=== PATIENT | female | born 1935 | race Caucasian/White ===

== ENCOUNTER → 2018-07-26 | Outpatient (CLI) | payer MEDICARE, BC ==
--- NOTE | 2018-07-26 12:57 | ECHOF ---
Referral Reason:I48.91 A fib MEASUREMENTS -------- HEIGHT: 180.3 cm WEIGHT: 104.3 kg BP: RVIDd: 2.7 cm (< 3.3) IVSd: 1.4 cm (0.6 - 1.1) LVIDd: 5.0 cm (3.9 - 5.3) LVPWd: 1.2 cm (0.6 - 1.1) IVSs: 1.9 cm LVIDs: 3.3 cm LVPWs: 1.9 cm LAESV Index (A-L): 41.69 ml/m Ao Diam: 3.2 cm (2.0 - 3.7) AV Cusp: 1.6 cm (1.5 - 2.6) LA Diam: 4.2 cm (2.7 - 3.8) RAP: 15.00 mmHg RVSP: 43.93 mmHg FINDINGS -------- Atrial fibrillation. This was a technically good study. The left ventricular size is normal. There is mild concentric left ventricular hypertrophy. Overa ll left ventricular systolic function is low-normal with, an EF between 50 - 55 %. Basal anterosept al LV wall motion is hypokinetic. Mid anteroseptal LV wall motion is hypokinetic. The right ventricle is normal in size. LA is severely dilated >40 ml/m2 RA appears enlarged. Aortic valve is trileaflet and is mildly thickened. Trace amount of aortic regurgitation. The mitral valve leaflets are mildly thickened. Mild mitral regurgitation is present. Mild tricuspid regurgitation present. There is mild pulmonary hypertension. The right ventricular systolic pressure, as measured by Doppler, is 43.93mmHg. Trace/mild (physiologic) pulmonic regurgitation. The aortic root size is normal. The inferior vena cava is mildly dilated. The pericardium is normal. CONCLUSIONS -------- 1. Atrial fibrillation. 2. This was a technically good study. 3. The left ventricular size is normal. 4. There is mild concentric left ventricular hypertrophy. 5. Overall left ventricular systolic function is low-normal with, an EF between 50 - 55 %. 6. Basal anteroseptal LV wall motion is hypokinetic. 7. Mid anteroseptal LV wall motion is hypokinetic. 8. The right ventricle is normal in size. 9. LA is severely dilated >40 ml/m2 10. RA appears enlarged. 11. Aortic valve is trileaflet and is mildly thickened. 12. Trace amount of aortic regurgitation. 13. The mitral valve leaflets are mildly thickened. 14. Mild mitral regurgitation is present. 15. Mild tricuspid regurgitation present. 16. There is mild pulmonary hypertension. 17. The right ventricular systolic pressure, as measured by Doppler, is 43.93mmHg. 18. Trace/mild (physiologic) pulmonic regurgitation. 19. The aortic root size is normal. 20. The inferior vena cava is mildly dilated. 21. The pericardium is normal. JEWEL BEARING DRILLER: Gaby Trujillo RDCS
== END | disposition home or self-care (01) ==
LOC: RADECHMAIN 11:27
PROVIDERS: ATTEND Internal Medicine
DX: I08.1 Rheumatic disorders of both mitral and tricuspid valves (principal); I27.20 Pulmonary hypertension, unspecified; I48.91 Unspecified atrial fibrillation
CPT/HCPCS: 93306

== ENCOUNTER → 2024-03-01 | Outpatient (CLI) | payer MEDICARE, BC ==
--- NOTE | 2024-03-01 11:17 | US ---
EXAMINATION TYPE: US venous doppler duplex LE DATE OF EXAM: 03/01/2024 10:37 AM COMPARISON: NONE CLINICAL INDICATION: Female, 88 years old with history of M25.561 PAIN IN RIGHT KNEE M79.89; Right le g pain and swelling, no known prior DVT, pt on blood thinners for A-fib SIDE PERFORMED: Bilateral TECHNIQUE: The lower extremity deep venous system is examined utilizing real time linear array sonog codi with graded compression, doppler sonography and color-flow sonography. VESSELS IMAGED: Common Femoral Vein Deep Femoral Vein Greater Saphenous Vein * Femoral Vein Popliteal Vein Small Saphenous Vein * Proximal Calf Veins (* superficial vessels) Right Leg: Negative for DVT Left Leg: Negative for DVT IMPRESSION: Grayscale, color doppler, spectral doppler imaging performed of the deep veins of the lo wer extremities. There is normal flow, compressibility, vascular waveforms.
--- NOTE | 2024-03-01 11:25 | XR ---
EXAMINATION TYPE: XR knee complete RT DATE OF EXAM: 03/01/2024 CLINICAL HISTORY: pain TECHNIQUE: 2 views of the right knee are obtained. COMPARISON: None. FINDINGS: There is no acute fracture/dislocation. Total knee arthroplasty with well-seated femoral a nd tibial components. The overlying soft tissue appears unremarkable. IMPRESSION: There is no acute fracture or dislocation.ICD 10 NO FRACTURE, INITIAL EVALUATION
--- NOTE | 2024-03-01 11:34 | XR ---
EXAMINATION TYPE: XR ankle limited RT DATE OF EXAM: 03/01/2024 COMPARISON: NONE HISTORY: Pain TECHNIQUE: Frontal, lateral images of the right ankle are obtained. COMPARISON: None. FINDINGS: There is no acute fracture/dislocation evident. The joint spaces appear within normal claudio its. The overlying soft tissue appears unremarkable. IMPRESSION: There is no acute fracture or dislocation seen.
== END | disposition home or self-care (01) ==
LOC: RADUSWWP 10:03
PROVIDERS: ATTEND Internal Medicine
DX: M25.561 Pain in right knee (principal); M79.89 Other specified soft tissue disorders; M25.471 Effusion, right ankle
CPT/HCPCS: 93970

== ENCOUNTER 2024-09-08 09:59 | Emergency (ER) | payer MEDICARE, BC ==
[2024-09-08 10:09] VITALS: TEMP 98
--- NOTE | 2024-09-08 10:31 | ED ---
General Adult HPI <Donta Pimentel Dena - Last Filed: 09/08/24 14:08> - General Source: patient, RN notes reviewed Mode of arrival: EMS Limitations: no limitations <Ani Palomo - Last Filed: 09/08/24 16:35> - General Chief complaint: Extremity Injury, Upper Stated complaint: rt shoulder pain Time Seen by Provider: 09/08/24 10:16 - History of Present Illness Initial comments: This is an 89-year-old female presenting to the emergency department via EMS for chief complaint of right shoulder pain. States that this morning when she was putting on her shoes she is concerned that her right shoulder may have came out of place. She is endorsing pain over the shoulder and is unable to complete full range of motion of the shoulder. Patient has had a reverse shoulder replacement with an intensive care medicine specialist out [facility] in 2017. She denies recent falls or injuries. Patient is on Eliquis for A-fib. (Ani Palomo) - Related Data Allergies Allergy/AdvReac Type Severity Reaction Status Date / Time meperidine [From Demerol] Allergy Rash/Hives Verified 09/08/24 10:09 sulfamethoxazole Allergy Rash/Hives Verified 09/08/24 10:09 [From Septra] trimethoprim [From Septra] Allergy Rash/Hives Verified 09/08/24 10:09 Review of Systems ROS Other: All systems not noted in ROS Statement are negative. <Donta Pimentel Dena - Last Filed: 09/08/24 14:08> ROS Other: All systems not noted in ROS Statement are negative. <Ani Palomo - Last Filed: 09/08/24 16:35> ROS Statement: Those systems with pertinent positive or pertinent negative responses have been documented in the HPI. Past Medical History Past Medical History: Atrial Fibrillation, Hyperlipidemia, Hypertension, Thyroid Disorder History of Any Multi-Drug Resistant Organisms: None Reported Past Surgical History: Joint Replacement, Orthopedic Surgery Past Psychological History: No Psychological Hx Reported Smoking Status: Current every day smoker Past Alcohol Use History: None Reported Past Drug Use History: None Reported <Ani Palomo - Last Filed: 09/08/24 16:35> General Exam Limitations: no limitations General appearance: alert, in no apparent distress Neck exam: Present: normal inspection. Absent: tenderness, meningismus, lymphadenopathy Respiratory exam: Present: normal lung sounds bilaterally. Absent: respiratory distress, wheezes, rales, rhonchi, stridor Cardiovascular Exam: Present: regular rate, normal rhythm, normal heart sounds. Absent: systolic murmur, diastolic murmur, rubs, gallop, clicks GI/Abdominal exam: Present: soft, normal bowel sounds. Absent: distended, tenderness, guarding, rebound, rigid Right Shoulder Exam: Present: dislocation. Absent: normal inspection, full ROM Hand Wrist exam: Present: normal inspection, full ROM Neuro motor exam: Present: wrist extension intact, thumb opposition intact Vascular: Present: normal capillary refill, radial pulse (2+). Absent: vascular compromise Back exam: Present: normal inspection Neurological exam: Present: alert, oriented X3, CN II-XII intact <Ani Palomo - Last Filed: 09/08/24 16:35> Course Vital Signs 09/08/24 09/08/24 09/08/24 10:04 12:49 14:14 Temperature 98 F Pulse Rate 83 69 83 Respiratory 20 18 18 Rate Blood Pressure 141/71 123/87 124/86 O2 Sat by Pulse 96 97 98 Oximetry Procedures - Orthopedic Joint Reduction Joint #1 Consent Obtained: verbal consent Side: right Joint Reduction Location: shoulder Analgesia: none (Toradol and Dilaudid) Shoulder Technique Used (if applicable): traction/counter-traction Technique Used: traction/counter-traction Post-Reduction Neuro Exam: intact Post-Reduction Vascular Exam: intact Post Reduction X-Ray Obtained: Yes Post Reduction X-Ray Results: reduced Splint Applied: Yes Patient Tolerated Procedure: well <Donta Pimentel - Last Filed: 09/08/24 14:08> Medical Decision Making <Ani Palomo - Last Filed: 09/08/24 16:35> - Medical Decision Making Was pt. sent in by a medical professional or institution (, PA, SUPERVISOR COMMUNICATIONS [employer] SIGNALS, urgent care, hospital, or long term...) When possible be specific @ -No Did you speak to anyone other than the patient for history (EMS, parent, family, police, friend...)? What history was obtained from this source @ -No Did you review nursing and triage notes (agree or disagree)? Why? @ -I reviewed and agree with nursing and triage notes Were old charts reviewed (outside hosp., previous admission, EMS record, old EKG, old radiological studies, urgent care reports/EKG's, long term records)? Report findings @ -No old charts were reviewed Differential Diagnosis (chest pain, altered mental status, abdominal pain women, abdominal pain men, vaginal bleeding, weakness, fever, dyspnea, syncope, headache, dizziness, GI bleed, back pain, seizure, CVA, palpatations, mental health, musculoskeletal)? @ -Differential Musculoskeletal Muscular strain, contusion, ligament sprain, fracture, arthritis, septic arthritis, bursitis, cellulitis, muscle spasm, nerve compression, DVT, arterial occlusion, herpes zoster, electrolyte abnormality, tumor.... This is not meant to be in all inclusive list EKG interpreted by me (3pts min.). @ -None X-rays interpreted by me (1pt min.). @ -x-ray of the right shoulder concerning for an inferior dislocation of right reverse shoulder arthroplasty. CT interpreted by me (1pt min.). @ -None done U/S interpreted by me (1pt. min.). @ -None done What testing was considered but not performed or refused? (CT, X-rays, U/S, labs)? Why? @ -None What meds were considered but not given or refused? Why? @ -None Did you discuss the management of the patient with other professionals (professionals i.e. , PA, SUPERVISOR [employer]LS, lab, RT, psych nurse, social media content specialist, wheel loader operator, teacher, public information officer, renal case manager)? Give summary @ -No Was smoking cessation discussed for >3mins.? @ -No Was critical care preformed (if so, how long)? @ -No Were there social determinants of health that impacted care today? How? (Homelessness, low income, unemployed, alcoholism, drug addiction, transportation, low edu. Level, literacy, decrease access to med. care, senior living, rehab)? @ -No Was there de-escalation of care discussed even if they declined (Discuss DNR or withdrawal of care, Hospice)? DNR status @ -No What co-morbidities impacted this encounter? (DM, HTN, Smoking, COPD, CAD, Cancer, CVA, ARF, Chemo, Hep., AIDS, mental health diagnosis, sleep apnea, morbid obesity)? @ -None Was patient admitted / discharged? Hospital course, mention meds given and route, prescriptions, significant lab abnormalities, going to OR and other pertinent info. @ - Discharge. 89-year-old female presenting with right shoulder pain. On examination there is noted to be deformity of the right shoulder however patient is neurovascularly intact of the upper extremity. She is offered pain medication and was declined. X-rays concerning for dislocation. Patient was personally evaluated by my attending, Dr. Pimentel, where at this time she is read with IM injection of Dilaudid and Toradol for pain relief. Successful relocation of shoulder evident by postreduction x-ray. Patient is placed in a sling for comfort and instructed to continue Tylenol Motrin as needed for pain. Undiagnosed new problem with uncertain prognosis? @ -No Drug Therapy requiring intensive monitoring for toxicity (Heparin, Nitro, Insulin, Cardizem)? @ -No Were any procedures done? @ -Shoulder relocation, see procedure note Diagnosis/symptom? @ -Shoulder dislocation Acute, or Chronic, or Acute on Chronic? @ -Acute Uncomplicated (without systemic symptoms) or Complicated (systemic symptoms)? @ -Uncomplicated Side effects of treatment? @ -No Exacerbation, Progression, or Severe Exacerbation? @ -No Poses a threat to life or bodily function? How? (Chest pain, [place], CA, pneumonia, PE, COPD, DKA, ARF, appy, cholecystitis, CVA, Diverticulitis, Homicidal, Suicidal, threat to staff... and all critical care pts) @ -No (Ani Palomo) Disposition <Donta Pimentel - Last Filed: 09/08/24 14:08> Is patient prescribed a controlled substance at d/c from ED?: No Time of Disposition: 14:05 <Ani Palomo - Last Filed: 09/08/24 16:35> Clinical Impression: Shoulder dislocation Disposition: HOME SELF-CARE Condition: Good Instructions (If sedation given, give patient instructions): Shoulder Dislocation (ED) Additional Instructions: Please return to the Emergency Department if symptoms worsen or any other concerns. Referrals: Onel Valadez DO [REFERRING] - 1-2 days
--- NOTE | 2024-09-08 12:10 | XR ---
EXAMINATION TYPE: XR chest 2V, XR shoulder complete 3 views RT DATE OF EXAM: 09/08/2024 11:47 AM COMPARISON: None CLINICAL INDICATION: Female, 89 years old with history of shoulder pain, , FINDINGS: CHEST: Heart mildly enlarged. Diffuse interstitial density. Mild hyperinflation. Right peritracheal soft tis [place] prominence probably tortuous/ectatic vasculature. Chronic full-thickness rotator cuff tear left s houlder. 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 No periprosthetic fractures seen. However, ther e is an inferior prosthetic dislocation. Corticated 8 mm ossific density below the acromion, probably a fragmented spur. AC joint appears intact. IMPRESSION: 1. Chest: Mild cardiomegaly with diffuse interstitial opacities. Possible CHF with pulmonary vascular congestion. Clinically correlate. Right paratracheal soft tissue prominence probably relates to ecta tic vasculature. Nonemergent follow-up CT chest to confirm and exclude any mediastinal abnormality. 2. 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 [facility], , 09/08/2024 12:07 PM
[2024-09-08] MEDS: KETOROLAC 15 MG/ML 1 ML VIAL IM STA (12:43)
[2024-09-08] MEDS: HYDROmorphone 0.5 MG/0.5 ML SYRINGE IM STA (12:43)
[2024-09-08 12:51] VITALS: RESP 18
--- NOTE | 2024-09-08 14:11 | XR ---
EXAMINATION TYPE: XR shoulder limited RT DATE OF EXAM: 09/08/2024 2:04 PM INDICATION: Patient age:Female; 89 years old; Reason for study: dislocation; pain COMPARISON: Right shoulder radiograph the same day. TECHNIQUE: The right shoulder was examined in single frontal projection. FINDINGS: Postsurgical changes from a reverse right total shoulder arthroplasty redemonstrated. No periprostati c fractures identified. Interval relocation of the right shoulder prosthesis. Diffuse interstitial de nsity within the visualized portion of the right lung. IMPRESSION: 1. Posttreatment changes from right shoulder prosthesis relocation. No acute fracture. 2. Redemonstration of diffuse interstitial density possibly related to pulmonary vascular congestion . [facility], , 09/08/2024 2:08 PM
[2024-09-08 14:16] VITALS: BP 124/86; PULSE 83
== END 2024-09-08 14:16 | disposition home or self-care (01) ==
LOC: EC 09:59
DX: S43.034A Inferior dislocation of right humerus, initial encounter (principal); I48.91 Unspecified atrial fibrillation; Z79.01 Long term (current) use of anticoagulants; F17.200 Nicotine dependence, unspecified, uncomplicated; Z88.2 Allergy status to sulfonamides; Z88.5 Allergy status to narcotic agent; Z88.1 Allergy status to other antibiotic agents; X58.XXXA Exposure to other specified factors, initial encounter
CPT/HCPCS: 73020; 73030; 71046; 23650; 99284; 96372 ×2; J1885; J1171